=== PATIENT | female | born 1980 | race Two or more races ===

== ENCOUNTER 2016-09-06 02:16 | Emergency (ER) | payer SELFPAY ==
[~2016-09-06] VITALS: Ht 160 cm; Wt 55.8 kg
--- NOTE | 2016-09-06 02:25 | NUR ---
To bed 7 an AAOx3 36 yo female bibself with c/o continuous sharp pain in the anterior abdomen, aggravated with movement starting yesterday morning. No n/v. Afebrile, VSS. nondiaphoretic. Gowned. Initiated comfort measures. Awaiting for er md horner.
[2016-09-06] MEDS ORDERED: ONDANSETRON HCL/PF 4 MG/2 ML VIAL IVP ONE (03:00)
[2016-09-06] MEDS ORDERED: HYDROMORPHONE INJ 2 MG/ML DISP.SYRIN IV ONE (03:00)
[2016-09-06] MEDS ORDERED: IV NS 0.9% 1,000 ML BAG IV ONE (03:00)
[2016-09-06] MEDS ORDERED: ONDANSETRON HCL/PF 4 MG/2 ML VIAL ONE (03:08)
[2016-09-06] MEDS ORDERED: IV NS 0.9% 1,000 ML ONE (03:08)
[2016-09-06] MEDS ORDERED: HYDROMORPHONE 1 MG/1 ML DISP.SYRIN ONE (03:08)
[2016-09-06] MEDS ORDERED: IV SET PRIMARY 1 EA INFUS.SET MC ONE (03:08)
--- NOTE | 2016-09-06 03:10 | NUR ---
started a saline lock on the lac g18, blood drawn and sent to lab.
--- NOTE | 2016-09-06 03:17 | NUR ---
medicated patient as ordered by Dr Geiger.
[2016-09-06 03:24] LABS: BILIRUBIN,URINE 1+ (NEGATIVE); BLOOD, URINE 2+ Ery/uL (NEGATIVE); COLOR,URINE YELLOW (YELLOW); KETONES,URINE 2+ (NEGATIVE); LEUKOCYTE ESTERASE ,URINE 2+ (NEGATIVE); NITRITE, URINE NEGATIVE (NEGATIVE); PROTEIN,URINE NEGATIVE (NEGATIVE); UGLUCOSE NEGATIVE (NEGATIVE)
[2016-09-06 03:26] LABS: APPEARANCE,URINE CLOUDY (CLEAR)
[2016-09-06 03:27] LABS: EOSINOPHILS % (AUTO) 0.1 % (0.0-6.0); HEMATOCRIT 40 % (33-45); LYMPHOCYTES # (AUTO) 0.6 /CMM (0.8-4.8); LYMPHOCYTES % (AUTO) 2.9 % (20.0-44.0); MEAN CORPUSCULAR HEMOGLOBIN 28 PG (26.0-33.0); MEAN CORPUSCULAR HGB CONC 33 g/dl (31.0-36.0); MEAN CORPUSCULAR VOLUME 86 fL (82-100); MONOCYTES # (AUTO) 0.3 /CMM (0.1-1.30); MONOCYTES % (AUTO) 1.3 % (2.0-12.0); NEUTROPHILS # (AUTO) 20.2 /CMM (1.8-8.9); NEUTROPHILS % (AUTO) 95.7 % (43.0-81.0); PLATELET COUNT (AUTO) 242 /CMM (150-450); RDW COEFFICIENT OF VARIATION 14.2 (11.5-15.0); RED BLOOD CELL COUNT(AUTO) 4.67 MIL/uL (4.0-5.2); WHITE BLOOD COUNT (AUTO) 21.1 K/uL (4.3-11.0)
[2016-09-06 03:29] LABS: PREGNANCY TEST URINE QUAL NEGATIVE (NEGATIVE)
[2016-09-06 03:32] LABS: ADD URINE CULTURE YES; BACTERIA,URINE 1+ /HPF (None Seen); SQUAMOUS EPITHELIAL CELL,UR Few /HPF (None Seen); WBC,URINE 30-40 /HPF (0-3)
[2016-09-06 03:46] LABS: INR 1.01 (0.87-1.13); PROTHROMBIN TIME 10.8 SECS (9.5-12.7)
[2016-09-06 03:49] LABS: ALBUMIN 4.4 g/dL (3.4-5.0); BILIRUBIN,DIRECT 0.1 mg/dL (0.0-0.2); BILIRUBIN,TOTAL 0.7 mg/dL (0.2-1.0); CALCIUM, SERUM 9.3 mg/dL (8.5-10.1); CREATININE 0.8 mg/dL (0.6-1.3); POTASSIUM 3.8 mmol/L (3.5-5.1); TOTAL PROTEIN, SERUM 8.7 g/dL (6.4-8.2)
[2016-09-06] MEDS ORDERED: CEPHALEXIN MONOHYDRATE 500 MG CAPSULE PO ONE ×2 (04:26→04:30)
--- NOTE | 2016-09-06 04:46 | NUR ---
IV removed. Catheter intact and site benign. Pressure and 4x4 applied to site. No bleeding noted. Patient discharged to home in stable condition. Written and verbal after care instructions given. Patient verbalizes understanding of instruction. Patient is ambulatory with steady gait and said she will go home through [facility].
[2016-09-06 04:53] VITALS: BP 109/58
== END 2016-09-06 04:53 | disposition home or self-care (01) ==
LOC: ER 02:20
DX: N12 Tubulo-interstitial nephritis, not specified as acute or chronic (principal)
CPT/HCPCS: 36415; 76856-TC; 80048-TC; 80076-TC; 81000-TC; 82962-TC; 83690-TC; 84703-TC; 85025-TC; 85730-TC; 87086-TC; A4606; J1170; J2405; J7030; Z7610